=== PATIENT | female | born 1980 | race Caucasian/White ===

== ENCOUNTER 2018-11-07 11:04 | Emergency (ER) | payer OTHER ==
[2018-11-07 11:21] VITALS: BP 109/75
--- NOTE | 2018-11-07 11:22 | Emergency Department Report ---
Blank Doc - Documentation Documentation: This is a 38-year-old female that presents with left upper back pain with radi ation to left sided chest and SOB. Stated happened at work. This initial assessment diagnostic orders/clinical plan/treatment(s) is/are subject to change based on patient's health status, clinical progression and re- assessment by fellow clinical providers in the ED. Further treatment and workup at subsequent clinical providers discretion. Patient/guardians urged not to elope from ED s their condition may be serious if not clinically assessed and managed. Initial orders include: 1-Patient sent to [facility] for further evaluation and treatment 2- labs 3- EKG
[2018-11-07 12:12] LABS: Basophils % (Auto) 0.7 % (0.0-1.8); Eosinophils # (Auto) 0.1 K/mm3 (0.0-0.4); Eosinophils % (Auto) 2.9 % (0.0-4.3); Hematocrit 39.7 % (30.3-42.9); Hemoglobin 13.6 gm/dl (10.1-14.3); Lymphocytes % (Auto) 39.6 % (13.4-35.0); Mean Corpuscular HGB Conc 34 % (30-34); Mean Corpuscular Volume 93 fl (79-97); Monocytes # (Auto) 0.4 K/mm3 (0.0-0.8); Monocytes % (Auto) 7.3 % (0.0-7.3); Platelet Count 178 K/mm3 (140-440); Red Blood Count 4.27 M/mm3 (3.65-5.03); Red Cell Distribution Width 13.4 % (13.2-15.2)
[2018-11-07 12:22] LABS: INR 1.02 (0.87-1.13)
[2018-11-07 12:23] LABS: Partial Thromboplastin Time 27.5 Sec. (24.2-36.6)
[2018-11-07 12:49] LABS: BUN/Creatinine Ratio 19; Blood Urea Nitrogen 15 mg/dL (7-17); Calcium 9.4 mg/dL (8.4-10.2); Hemolysis Index 5
--- NOTE | 2018-11-07 13:31 | XRay Report ---
ROUTINE CHEST, TWO VIEWS: HISTORY: chest pain. The trachea, heart, mediastinal contour, lung hagen and bony thorax are unremarkable. IMPRESSION: Unremarkable chest x-ray.
--- NOTE | 2018-11-07 14:53 | Emergency Department Report ---
ED General Adult HPI - General Chief complaint: Back Pain/Injury Stated complaint: BACK PAIN Time Seen by Provider: 11/07/18 11:20 Source: patient Mode of arrival: Ambulatory Limitations: No Limitations - History of Present Illness Initial comments: Patient presents to emergency department with chief complaint of chest pain and started this morning upon awakening. Patient describes chest pain as pressure- like in nature and it started around 7 AM this morning. Patient states this has happened to her twice before included in 2016 where she was admitted to the [facility] with a negative chest pain workup done. Patient states this also happened again at 2017 and she was seen in emergency department in the [place] and was told was anxiety. Patient states that her and children live in [place] and she lives here by herself because she is scared of her . Patient states this living arrangement was very stressful to her. -: Sudden Location: chest Radiation: back Severity scale (0 -10): 8 Quality: other (pressure-like) Consistency: constant Improves with: none Worsens with: none Associated Symptoms: denies other symptoms Treatments Prior to Arrival: none - Related Data Previous Rx's Medication Instructions Recorded Last Taken Type traMADol [Ultram] 50 mg PO Q6HR PRN #24 tablet 11/07/18 Unknown Rx Allergies Allergy/AdvReac Type Severity Reaction Status Date / Time No Known Allergies Allergy Verified 11/07/18 11:20 ED Review of Systems ROS: Stated complaint: BACK PAIN Other details as noted in HPI Comment: All other systems reviewed and negative Constitutional: denies: chills, fever Eyes: denies: eye pain, eye discharge, vision change ENT: denies: ear pain, throat pain Respiratory: denies: cough, shortness of breath, wheezing Cardiovascular: denies: chest pain, palpitations Endocrine: no symptoms reported Gastrointestinal: denies: abdominal pain, nausea, diarrhea Genitourinary: denies: urgency, dysuria, discharge Musculoskeletal: denies: back pain, joint swelling, arthralgia Skin: denies: rash, lesions Neurological: denies: headache, weakness, paresthesias Psychiatric: denies: anxiety, depression Hematological/Lymphatic: denies: easy bleeding, easy bruising ED Past Medical Hx - Past Medical History Previous Medical History?: No - Surgical History Past Surgical History?: No - Social History Smoking Status: Never Smoker Substance Use Type: None - Medications Home Medications: Home Medications Medication Instructions Recorded Confirmed Last Taken Type traMADol [Ultram] 50 mg PO Q6HR PRN #24 tablet 11/07/18 Unknown Rx ED Physical Exam - General Limitations: No Limitations General appearance: alert, in no apparent distress - Head Head exam: Present: atraumatic, normocephalic - Eye Eye exam: Present: normal appearance, PERRL, EOMI - ENT ENT exam: Present: mucous membranes moist - Neck Neck exam: Present: normal inspection - Respiratory Respiratory exam: Present: normal lung sounds bilaterally. Absent: respiratory distress, wheezes, rales, rhonchi - Cardiovascular Cardiovascular Exam: Present: regular rate, normal rhythm. Absent: systolic murmur, diastolic murmur, rubs, gallop - GI/Abdominal GI/Abdominal exam: Present: soft, normal bowel sounds. Absent: distended, tenderness - Extremities Exam Extremities exam: Present: normal inspection - Back Exam Back exam: Present: normal inspection - Neurological Exam Neurological exam: Present: alert, oriented X3, CN II-XII intact. Absent: motor sensory deficit - Psychiatric Psychiatric exam: Present: normal affect, normal mood - Skin Skin exam: Present: warm, dry, intact, normal color. Absent: rash ED Course Vital Signs 11/07/18 11:20 Temperature 97.3 F L Pulse Rate 81 Respiratory 16 Rate Blood Pressure 109/75 [Left] O2 Sat by Pulse 100 Oximetry ED Medical Decision Making - Lab Data Result diagrams: 11/07/18 11:51 11/07/18 11:51 Lab Results 11/07/18 11/07/18 11/07/18 Range/Units 11:51 11:51 11:51 WBC 5.0 (4.5-11.0) K/mm3 RBC 4.27 (3.65-5.03) M/mm3 Hgb 13.6 (10.1-14.3) gm/dl Hct 39.7 (30.3-42.9) % MCV 93 (79-97) fl MCH 32 (28-32) pg MCHC 34 (30-34) % RDW 13.4 (13.2-15.2) % Plt Count 178 (140-440) K/mm3 Lymph % (Auto) 39.6 H (13.4-35.0) % Ford % (Auto) 7.3 (0.0-7.3) % Eos % (Auto) 2.9 (0.0-4.3) % Baso % (Auto) 0.7 (0.0-1.8) % Lymph # 2.0 (1.2-5.4) K/mm3 Ford # 0.4 (0.0-0.8) K/mm3 Eos # 0.1 (0.0-0.4) K/mm3 Baso # 0.0 (0.0-0.1) K/mm3 Seg Neutrophils % 49.5 (40.0-70.0) % Seg Neutrophils # 2.5 (1.8-7.7) K/mm3 PT 14.0 (12.2-14.9) Sec. INR 1.02 (0.87-1.13) APTT 27.5 (24.2-36.6) Sec. D-Dimer 222.80 (0-234) ng/mlDDU Sodium 138 (137-145) mmol/L Potassium 3.9 (3.6-5.0) mmol/L Chloride 101.5 (98-107) mmol/L Carbon Dioxide 24 (22-30) mmol/L Anion Gap 16 mmol/L BUN 15 (7-17) mg/dL Creatinine 0.8 (0.7-1.2) mg/dL Estimated GFR > 60 ml/min BUN/Creatinine Ratio 19 % Glucose 93 (65-100) mg/dL Calcium 9.4 (8.4-10.2) mg/dL Troponin T < 0.010 (0.00-0.029) ng/mL HCG, Qual (Negative) 11/07/18 11/07/18 Range/Units 11:51 14:11 WBC (4.5-11.0) K/mm3 RBC (3.65-5.03) M/mm3 Hgb (10.1-14.3) gm/dl Hct (30.3-42.9) % MCV (79-97) fl MCH (28-32) pg MCHC (30-34) % RDW (13.2-15.2) % Plt Count (140-440) K/mm3 Lymph % (Auto) (13.4-35.0) % Ford % (Auto) (0.0-7.3) % Eos % (Auto) (0.0-4.3) % Baso % (Auto) (0.0-1.8) % Lymph # (1.2-5.4) K/mm3 Ford # (0.0-0.8) K/mm3 Eos # (0.0-0.4) K/mm3 Baso # (0.0-0.1) K/mm3 Seg Neutrophils % (40.0-70.0) % Seg Neutrophils # (1.8-7.7) K/mm3 PT (12.2-14.9) Sec. INR (0.87-1.13) APTT (24.2-36.6) Sec. D-Dimer (0-234) ng/mlDDU Sodium (137-145) mmol/L Potassium (3.6-5.0) mmol/L Chloride (98-107) mmol/L Carbon Dioxide (22-30) mmol/L Anion Gap mmol/L BUN (7-17) mg/dL Creatinine (0.7-1.2) mg/dL Estimated GFR ml/min BUN/Creatinine Ratio % Glucose (65-100) mg/dL Calcium (8.4-10.2) mg/dL Troponin T < 0.010 (0.00-0.029) ng/mL HCG, Qual Negative (Negative) - EKG Data EKG shows normal: sinus rhythm Rate: normal Critical care attestation.: If time is entered above; I have spent that time in minutes in the direct care of this critically ill patient, excluding procedure time. ED Disposition Clinical Impression: Nonspecific chest pain Disposition: DC- TO HOME OR SELFCARE Is pt being admited?: No Does the pt Need Aspirin: No Condition: Stable Instructions: Chest Pain (ED), Noncardiac Chest Pain (ED) Additional Instructions: return if worse Referrals: [facility] [Other] - 3-5 Days [facility] [Outside] - 3-5 Days [facility] [Provider Group] - 3-5 Days [facility] [Provider Group] - 3-5 Days [facility] [Provider Group] - 3-5 Days Time of Disposition: 15:38
[2018-11-07] MEDS ORDERED: ULTRAM PO ONE (15:37)
== END 2018-11-07 15:50 | disposition home or self-care (01) ==
LOC: ED 11:04
DX: R07.89 Other chest pain (principal)
CPT/HCPCS: 36415; 71046; 80048; 84484; 84703; 85025; 85379; 85610; 85730; 93005; 93010; 99284

== ENCOUNTER 2019-06-09 10:29 | Emergency (ER) | payer OTHER, SELFPAY ==
[2019-06-09 10:41] VITALS: BP 101/66
--- NOTE | 2019-06-09 11:07 | Emergency Department Report ---
ED Back Pain/Injury HPI - General Chief Complaint: Back Pain/Injury Stated Complaint: RT LEG/FEET PAIN Time Seen by Provider: 06/09/19 11:00 Source: patient Limitations: No Limitations - History of Present Illness Initial Comments: PT IS A 38 YO WHO COMES TO ER P SEEING A DOCTOR EARLIER THIS WEEK FOR THE SAME. SHE HAS LBP WITH RAD TO RLE. SHE IS ON MOTRIN, SAVI AND DICLOFENAC AND NOT GETTING RELIEF. NO FEVER. NO CHILLS. NO ABD PAIN. NO DYSURIA. NO N/V/D NO FALL OR TRAUMA NO CP NO SOB STATES THIS STARTED WHEN WORKING A JOB AND BEING ON HER FEET. SHE STATES SHE HAS HAD LBP OFF AND ON FOR 1 MONTH BUT JUST THIS WEEK DID IT INVOLVE THE R LEG PT IS AMBULATORY AND DROVE TO ER VSS Complaint: back pain -: Sudden, days(s) Similar Symptoms Previously: Yes Place: home Radiation: left leg Severity: mild Quality: burning, sharp Consistency: intermittent Worsens With: immobilization, movement Associated Symptoms: denies other symptoms - Related Data Previous Rx's Medication Instructions Recorded Last Taken Type Cyclobenzaprine [Flexeril] 10 mg PO TID PRN #10 tablet 06/09/19 Unknown Rx Ibuprofen [Motrin] 800 mg PO Q8HR PRN #30 tablet 06/09/19 Unknown Rx predniSONE [Deltasone] 20 mg PO DAILY #5 tablet 06/09/19 Unknown Rx Allergies Allergy/AdvReac Type Severity Reaction Status Date / Time No Known Allergies Allergy Verified 11/07/18 11:20 ED Review of Systems ROS: Stated complaint: RT LEG/FEET PAIN Other details as noted in HPI Comment: All other systems reviewed and negative ED Past Medical Hx - Past Medical History Medical history: no medical history Family history: no significant family history - Social History Smoking Status: Never Smoker Alcohol use: rarely Drug use: none ED Back Pain Physical Exam - Exam General: Vital signs noted. No distress. Alert and acting appropriately. Back/Abdomen: Yes Straight Leg Raise Pain, No Abdominal Tenderness, No Perithoracic Tenderness, No Perilumbar Tenderness, No Sacroiliac Tenderness, No Flank Tenderness Neuro: Yes Normal Sensation, Yes Normal DTR's, Yes Normal Gait, No Motor Weakness ED Course Vital Signs 06/09/19 10:39 Temperature 97.9 F Pulse Rate 73 Respiratory 16 Rate Blood Pressure 101/66 [Left] O2 Sat by Pulse 98 Oximetry ED Medical Decision Making - Medical Decision Making NO DYSURIA/FEVER OR OTHER URINARY COMPLAINTS NO FALL OR TRAUMA NO SPINE TENDERNESS POS R LEG RAISE MEDICATED IN ER WITH STEROID INJECTION PT EDUCATED ON PLAN OF CARE DC HOME WITH ORTHO/PCP FOLLOW UP Vital Signs 06/09/19 10:39 Temperature 97.9 F Pulse Rate 73 Respiratory 16 Rate Blood Pressure 101/66 [Left] O2 Sat by Pulse 98 Oximetry - Differential Diagnosis [facility]I Critical care attestation.: If time is entered above; I have spent that time in minutes in the direct care of this critically ill patient, excluding procedure time. ED Disposition Clinical Impression: Sciatica, Low back pain Disposition: DC-01 TO HOME OR SELFCARE Is pt being admited?: No Does the pt Need Aspirin: No Condition: Stable Instructions: Lumbar Radiculopathy (ED) Additional Instructions: WARM COMPRESSES STOP MEDS YOU ARE CURRENTLY TAKING AND START THE ONE WE HAVE GIVEN YOU FOLLOW UP WITH DR RIBERA AND DR GODWIN REFERRALS BELOW Prescriptions: predniSONE [Deltasone] 20 mg PO DAILY #5 tablet Cyclobenzaprine [Flexeril] 10 mg PO TID PRN #10 tablet PRN Reason: Muscle Spasm Ibuprofen [Motrin] 800 mg PO Q8HR PRN #30 tablet PRN Reason: Pain, Moderate (4-6) Referrals: TANIA RIBERA MD [Staff Physician] - 3-5 Days BHAVANI GODWIN MD [Staff Physician] - 3-5 Days Time of Disposition: 11:20
[2019-06-09] MEDS ORDERED: methylPREDNISolone ACETATE 80 MG/1 ML INJ IM ONE (11:20)
== END 2019-06-09 11:49 | disposition home or self-care (01) ==
LOC: ED 10:29
DX: M54.42 Lumbago with sciatica, left side (principal)
CPT/HCPCS: 96372; 99282; J1040